=== PATIENT | female | born 1995 | race Two or more races ===

== ENCOUNTER 2022-01-26 12:20 | Emergency (ER) | payer MEDICAID ==
[~2022-01-26] VITALS: Ht 167.6 cm; Wt 53.1 kg
[2022-01-26 13:08] VITALS: BP 131/83
[2022-01-26] MEDS ORDERED: IBUP600T27 PO (13:15)
== END 2022-01-26 13:23 | disposition home or self-care (01) ==
LOC: ER 12:20
DX: S92.511A Displaced fracture of proximal phalanx of right lesser toe(s), initial encounter for closed fracture (principal); X50.1XXA Overexertion from prolonged static or awkward postures, initial encounter; Y93.89 Activity, other specified; Y92.89 Other specified places as the place of occurrence of the external cause; Y99.8 Other external cause status
CPT/HCPCS: 73630; 99283; L3260